=== PATIENT | female | born 1960 | race Caucasian/White ===

== ENCOUNTER 2017-11-03 19:35 | Emergency (ER) | payer OTHER ==
[2017-11-03] MEDS ORDERED: Sodium Chloride 0.9% 1000 ML 1,000 ML IV STA (21:04)
[2017-11-03] MEDS ORDERED: Zofran 4 MG/2 ML VIAL IV ONE (21:04)
[2017-11-03] MEDS ORDERED: Hydromorphone 1 mg/ml Ampule IV ONE (21:04)
[2017-11-03] MEDS ORDERED: Hydromorphone 1 mg/ml Ampule ONE (21:10)
[2017-11-03] MEDS ORDERED: Zofran 4 MG/2 ML VIAL ONE (21:10)
[2017-11-03] MEDS ORDERED: Sodium Chloride 0.9% 1000 ML 1,000 ML ONE (21:11)
[2017-11-03 21:40] LABS: BASOPHIL % 0.4 % (0.0-0.4); Basophil (Absolute #) 0.03 (0-0.4); Eosinophil % 2.9 % (0.00-5.0); Eosinophil (Absolute #) 0.22 (0-0.5); Granulocyte Absolute (ANC) 3.46 (1.4-6.9); Granulocytes % 45.2 % (36.0-66.0); Hemoglobin 13.2 gm/dl (12.0-16.0); Lymphocyte (Absolute #) 3.17 (1.0-4.6); Lymphocytes % 41.4 % (24.0-44.0); Mean Cell Volume 85.1 fl (78-100); Mean Corpuscular Hemoglobin 28.1 pg (26-32); Mean Platelet Volume 10.8 fl (6-9.5); Monocyte (Absolute #) 0.77 (0.0-1.3); Monocytes % 10.1 % (0.0-12.0); Platelet Count 229 K/mm3 (150-450); Red Cell Distribution Width 13.2 % (11.5-14.0); White Blood Count 7.7 K/mm3 (4.0-10.5)
[2017-11-03 21:58] LABS: ANION GAP 14.7 MEQ/L (5-15); BLOOD UREA NITROGEN 19 mg/dL (7-17); CHLORIDE 103 mmol/L (98-107); Calcium 9.4 mg/dL (8.4-10.2); Carbon Dioxide 28 mmol/L (22-30); Creatinine 1 0.81 mg/dL (0.52-1.04); Glucose 108 mg/dL (74-106); Potassium 4.4 mmol/L (3.5-5.1); SODIUM 141 mmol/L (137-145)
[2017-11-03 22:02] LABS: Appearance SLIGHTLY CLOUDY (CLEAR); Specific Gravity 1.025 (1.005-1.025)
[2017-11-03 22:04] LABS: Bacteria RARE /HPF (NEGATIVE); Epithelial Cells FEW /HPF (FEW); RBC 0-2 /HPF (0-2)
--- NOTE | 2017-11-03 22:45 | ERPHSYRPT ---
- History of Present Illness Time Seen by Provider: 11/03/17 20:30 Historian: patient Exam Limitations: clinical condition Patient Subjective Stated Complaint: pain in back and bladder Triage Nursing Assessment: Pt c/o of pain in the back that radiates to the front and to the bladder, frequent urination, "pins and needle" feeling, hematuria. afebrile, hx of bladder falling, BP 149/74 Physician History: PATIENT COMPLAINS OF LOWER ABDOMINAL PAIN, ONSET OF HEMATURIA, AND LOWER MID BACK PAIN X 24 HOURS. HAS SHARP PAINS UPON VOIDING. DENIES FEVER, CHILLS, FLANK PAIN. HAS CHRONIC LOWE BACK PAIN, DEGENERATGIVE DISC DISEASE. Timing/Duration: yesterday Quality: sharpness, stabbing Abdominal Pain Onset Location: suprapubic Pain Radiation: other (TO LOWER BACK) Severity of Pain-Max: moderate Severity of Pain-Current: moderate Modifying Factors: Improves With: urinating Associated Symptoms: other (HEMATURIA, LOW BACK PAIN) Previous symptoms: other (HISTORY OF LOW BACK PAIN) Allergies/Adverse Reactions: No Known Drug Allergies Allergy (Verified 11/03/17 20:28) Home Medications: Levothyroxine Sodium 100 Mcg [Synthroid 100 Mcg] 175 mcg PO DAILY 04/28/14 [History] Hx Tetanus, Diphtheria Vaccination/Date Given: No Hx Influenza Vaccination/Date Given: No Hx Pneumococcal Vaccination/Date Given: No - Review of Systems Constitutional: No Fever, No Chills Eyes: No Symptoms Ears, Nose, & Throat: No Symptoms Respiratory: No Cough, No Dyspnea Cardiac: No Chest Pain, No Edema, No Syncope Abdominal/Gastrointestinal: Abdominal Pain, No Nausea, No Vomiting, No Diarrhea Genitourinary Symptoms: Hematuria, No Dysuria Musculoskeletal: No Back Pain, No Neck Pain Skin: No Rash Neurological: No Dizziness, No Focal Weakness, No Sensory Changes Psychological: No Symptoms Endocrine: No Symptoms All Other Systems: Reviewed and Negative - Past Medical History Pertinent Past Medical History: Yes Neurological History: No Pertinent History ENT History: No Pertinent History Cardiac History: No Pertinent History Respiratory History: No Pertinent History Endocrine Medical History: Thyroid Cancer Musculoskeletal History: No Pertinent History GI Medical History: No Pertinent History History: No Pertinent History Psycho-Social History: No Pertinent History Female Reproductive Disorders: No Pertinent History - Past Surgical History Past Surgical History: Yes Neuro Surgical History: No Pertinent History Cardiac: No Pertinent History Respiratory: No Pertinent History Gastrointestinal: No Pertinent History Genitourinary: No Pertinent History Musculoskeletal: No Pertinent History Female Surgical History: Tubal Ligation Other Surgical History: THYROID SURGERY - Social History Smoking Status: Former smoker Exposure to second hand smoke: No Drug Use: none Patient Lives Alone: No - Female History Hx Now: No - Nursing Vital Signs Nursing Vital Signs: Initial Vital Signs Temperature 97.6 F 11/03/17 20:16 Pulse Rate 73 11/03/17 20:16 Blood Pressure 149/74 11/03/17 20:16 O2 Sat by Pulse Oximetry 98 11/03/17 20:16 Pain Scale Pain Intensity 8 - Physical Exam General Appearance: mild distress Eye Exam: PERRL/EOMI Ears, Nose, Throat Exam: normal ENT inspection Neck Exam: normal inspection Respiratory Exam: normal breath sounds Cardiovascular Exam: regular rate/rhythm Gastrointestinal/Abdomen Exam: soft, normal bowel sounds, tenderness ( SUPRAPUBIC TENDERNESS), hernia (SUPRAUMBILICAL HERNIA) Back Exam: normal inspection, decreased range of motion, muscle spasm ( TENDERNESS L5-S1 NO CVA TENDERNESS) Extremity Exam: normal inspection, normal range of motion, pelvis stable Neurologic Exam: alert, oriented x 3 Skin Exam: normal color SpO2 Interpretation: normal SpO2: 98 Oxygen Delivery: Room Air - CT Exams Abdomen/Pelvis CT Interpretation: Discussed w/radiologist (ENLARGING SMALL SUPRAUMBILICAL FATTY VENTRAL HERNIA,, MODERATE FECAL STASIS, RIGHT RENAL CYST) Ordered Tests: Active Orders 24 hr Category Date Time Status Clean Catch Urine Specimen STAT Care 11/03/17 21:04 Active IV Insertion STAT Care 11/03/17 21:04 Active ABDOMEN AND PELVIS W/0 CONTRAS [CT] Stat Exams 11/03/17 21:04 Taken BMP Stat Lab 11/03/17 21:30 Completed CBC W DIFF Stat Lab 11/03/17 21:30 Completed CULTURE,URINE Stat Lab 11/03/17 21:30 Received UA W/ MICROSCOPIC Stat Lab 11/03/17 21:30 Completed Medication Summary Discontinued Medications Generic Name Dose Route Start Last Admin Trade Name Freq PRN Reason Stop Dose Admin Hydromorphone HCl 1 mg 11/03/17 21:04 11/03/17 21:12 Hydromorphone 1 Mg/Ml Ampule IV 11/03/17 21:05 1 mg STAT ONE Administration Hydromorphone HCl Confirm 11/03/17 21:10 Hydromorphone 1 Mg/Ml Ampule Administered 11/03/17 21:11 Dose 1 mg .ROUTE .STK-MED ONE Sodium Chloride 1,000 mls @ 500 mls/hr 11/03/17 21:04 11/03/17 23:15 Sodium Chloride 0.9% 1000 Ml IV 11/03/17 23:03 Infused .Q2H STA Infusion Sodium Chloride Confirm 11/03/17 21:11 Sodium Chloride 0.9% 1000 Ml Administered 11/03/17 21:12 Dose 1,000 mls @ ud .ROUTE .STK-MED ONE Ondansetron HCl 4 mg 11/03/17 21:04 11/03/17 21:12 Zofran 4 Mg/2 Ml Vial IV 11/03/17 21:05 4 mg STAT ONE Administration Ondansetron HCl Confirm 11/03/17 21:10 Zofran 4 Mg/2 Ml Vial Administered 11/03/17 21:11 Dose 4 mg .ROUTE .STK-MED ONE Lab/Rad Data: Laboratory Result Diagrams 11/03/17 21:30 11/03/17 21:30 Laboratory Results 11/03/17 11/03/17 11/03/17 Range/Units 21:30 21:30 21:30 WBC 7.7 (4.0-10.5) K/mm3 RBC 4.70 (4.1-5.4) M/mm3 Hgb 13.2 (12.0-16.0) gm/dl Hct 40.0 (35-47) % MCV 85.1 (78-100) fl MCH 28.1 (26-32) pg MCHC 33.0 (32-36) g/dl RDW 13.2 (11.5-14.0) % Plt Count 229 (150-450) K/mm3 MPV 10.8 H (6-9.5) fl Gran % 45.2 (36.0-66.0) % Eos # (Auto) 0.22 (0-0.5) Absolute Lymphs (auto) 3.17 (1.0-4.6) Absolute Monos (auto) 0.77 (0.0-1.3) Lymphocytes % 41.4 (24.0-44.0) % Monocytes % 10.1 (0.0-12.0) % Eosinophils % 2.9 (0.00-5.0) % Basophils % 0.4 (0.0-0.4) % Absolute Granulocytes 3.46 (1.4-6.9) Basophils # 0.03 (0-0.4) Sodium 141 (137-145) mmol/L Potassium 4.4 (3.5-5.1) mmol/L Chloride 103 (98-107) mmol/L Carbon Dioxide 28 (22-30) mmol/L Anion Gap 14.7 (5-15) MEQ/L BUN 19 H (7-17) mg/dL Creatinine 0.81 (0.52-1.04) mg/dL Estimated GFR > 60.0 ML/MIN Glucose 108 H (74-106) mg/dL Calcium 9.4 (8.4-10.2) mg/dL Ur Collection Type CCMS Urine Color ORANGE (YELLOW) Urine Appearance SLIGHTLY CLOUDY (CLEAR) Urine pH 5.0 (5-6) Ur Specific [place] 1.025 (1.005-1.025) Urine Protein (Negative) Urine Ketones (NEGATIVE) Urine Blood (0-5) Remy/ul Urine Nitrite (NEGATIVE) Urine Bilirubin (NEGATIVE) Urine Urobilinogen (0-1) mg/dL Ur Leukocyte Esterase (NEGATIVE) Urine Microscopic RBC 0-2 (0-2) /HPF Urine Microscopic WBC 2-5 (0-5) /HPF Ur Epithelial Cells FEW (FEW) /HPF Urine Bacteria RARE (NEGATIVE) /HPF Urine Culture Reflexed YES (NO) Urine Glucose (NEGATIVE) mg/dL - Progress Progress: improved, pain not gone completely Counseled pt/family regarding: diagnosis, need for follow-up, rad results - Departure Time of Disposition: 23:57 Departure Disposition: Home Clinical Impression: URINARY TRACT INFECTION, SUPRAUMBILICAL HERNIA Condition: Stable Critical Care Time: No Referrals: SHEILA JOHANSEN [Primary Care Provider] - Additional Instructions: FOLLOWUP WITH YOUR PRIMARY CARE PROVIDER FOR REFERRAL TO GENERAL SURGEON FOR EVALUATION OF VENTRAL UMBILICAL HERNIA AND HIATAL HERNIA, AND A UROLOGIST FOR YOUR BLADDER PROLAPSE. ANTIBIOTIC BACTRIM DS TWICE DAILY FOR 10 DAYS. PRYIDIUM 100MG AFTER MEALS X 2 DAYS. ULTRAM 50 MG EVERY 6 HOURS NEEDED FOR PAIN. Prescriptions: Tramadol HCl 50 mg [Ultram 50 mg] 50 mg PO Q6HPRN PRN #15 tablet PRN Reason: Pain Phenazopyridine HCl [Pyridium 100 mg] 100 mg PO AC #6 Smz/Tmp Ds Tablet [Bactrim Ds Tablet] 1 udtab PO BID #20 tablet
[2017-11-03 23:14] VITALS: BP 108/64; PULSE 71
[2017-11-03 23:23] VITALS: O2SAT 98
[2017-11-03] MEDS ORDERED: BACTRIM DS TABLET PO STA (23:44)
[2017-11-03] MEDS ORDERED: BACTRIM DS TABLET PO ONE (23:45)
[2017-11-03] MEDS ORDERED: PYRIDIUM 200 MG ONE (23:51)
--- NOTE | 2017-11-04 09:34 | XRAY ---
Indication: Hematuria, urinary frequency, and back pain. Multiple contiguous axial images obtained through the abdomen and pelvis without contrast as ordered. Comparison: April 28, 2014. Lung bases again demonstrates minimal bibasilar fibrosis/scarring. No infiltrate or effusion. Heart is not enlarged. Stable small hiatal hernia. Noncontrasted stomach and bowel loops appear nonobstructed. There is now moderate diffuse scattered colonic fecal debris throughout. Normal appendix. No free fluid/air. Stable 2.2 cm right renal cyst and calcified splenic granulomas. Remaining liver, gallbladder, pancreas, spleen, adrenal glands, kidneys, ureters, bladder, uterus, and aorta appear unremarkable for noncontrast exam. Osseous structures intact again with mild/moderate multilevel degenerative spondylosis and partially visualized pectus excavatum deformity. Stable small fatty supraumbilical ventral hernia. Impression: 1. New fecal stasis without obstruction. 2. Stable hiatal hernia, fatty ventral hernia, and right renal cyst. 3. No acute intra-abdominal/pelvic abnormalities on this noncontrast exam. CT DI 20.31
[2017-11-04] MEDS ORDERED: PYRIDIUM 200 MG PO ONE (23:45)
== END 2017-11-04 | disposition home or self-care (01) ==
LOC: ED 19:35
DX: N39.0 Urinary tract infection, site not specified (principal); K43.9 Ventral hernia without obstruction or gangrene; R31.9 Hematuria, unspecified; M54.5 Low back pain; K44.9 Diaphragmatic hernia without obstruction or gangrene; N81.10 Cystocele, unspecified
CPT/HCPCS: 36415; 74176; 80048; 81000; 85025; 87086; 96360; 96374; 96375; 99284; J1170; J2405; A9270-GY

== ENCOUNTER 2017-12-25 07:24 | Day surgery (SDC) | payer OTHER ==
--- NOTE | 2017-12-24 09:57 | HP ---
DATE OF SURGERY: 12/25/2017 ADMISSION DIAGNOSIS: Ventral and umbilical hernia possible mesh. HISTORY OF PRESENT ILLNESS: The patient has symptomatic hernia, one at the umbilicus upper edge, ventral hernia about 1 inch above this requiring repair with possible mesh. PAST MEDICAL HISTORY: ALLERGIES: NONE. MEDICATIONS: Synthroid, Naprosyn, Celexa. PAST SURGICAL HISTORY: Thyroid cancer. SOCIAL HISTORY: Negative. FAMILY HISTORY: Negative. REVIEW OF SYSTEMS: Negative. PHYSICAL EXAMINATION: VITAL SIGNS: Normal. CHEST: Clear. COR: Regular. ABDOMEN: As noted. IMPRESSION: Two hernias. PLAN: Repair.
[~2017-12-25 07:24] MED LIST: KEFZOL 1 GM ONE; Lactated Ringers 1,000 ML IV ONE; Sensorcaine 0.25% 10 ML ONE
[2017-12-25] MEDS ORDERED: SUBLIMAZE 250 MCG/5 ML IV ONE (07:25)
[2017-12-25] MEDS ORDERED: Zemuron 100 MG/10 ML IV ONE (07:25)
[2017-12-25] MEDS ORDERED: BRIDION 200MG/2ML IV ONE (07:25)
[2017-12-25] MEDS ORDERED: DIPRIVAN 200 MG/20 ML IV ONE (07:25)
[2017-12-25] MEDS ORDERED: Lactated Ringers 1,000 ML IV ONE (07:43)
[2017-12-25] MEDS ORDERED: CEFAZOLIN 2 GM-D5W BAG** 2 GM/50 ML ML IV SCH (08:00)
[2017-12-25] MEDS ORDERED: Lactated Ringers 1,000 ML IV SCH (08:00)
[2017-12-25] MEDS ORDERED: CEFAZOLIN 2 GM-D5W BAG** 2 GM/50 ML ML IV ONE (08:43)
[2017-12-25] MEDS ORDERED: VALIUM 10 MG/2 ML SYRINGE IV ONE (08:55)
[2017-12-25] MEDS ORDERED: MORPHINE SULFATE 10 MG/ML ONE (12:14)
[2017-12-25] MEDS ORDERED: TORAdol 30 mg Injection ONE (12:14)
[2017-12-25] MEDS ORDERED: SUBLIMAZE 100 MCG/2 ML ONE (12:23)
[2017-12-25] MEDS ORDERED: NORCO 7.5/325 MG TAB PO PRN (14:06)
[2017-12-25 14:19] VITALS: O2SAT 95
[2017-12-25 14:58] VITALS: BP 152/76; PULSE 76
--- NOTE | 2017-12-26 09:07 | OP ---
SURGERY DATE/TIME: 12/25/2017 1113 PREOPERATIVE DIAGNOSIS: Ventral hernia, umbilical hernia. POSTOPERATIVE DIAGNOSIS: Ventral hernia. PROCEDURE: Ventral herniorrhaphy with mesh. SURGEON: John Berg M.D. ANESTHESIA: General. COMPLICATIONS: None. CONDITION: Stable. INDICATION: The patient has ventral hernia, very small umbilical hernia. DESCRIPTION OF PROCEDURE: Taken to surgery. General anesthetic. Routine prep and drape. Ventral hernia was opened. A 3 inch zone was clear underneath this and this did include the field under the umbilical area. A Bicomponent medium-sized mesh was placed, pulled up and secured with simple interrupted suture #0 Prolene tacking this very nicely. This looked like a very solid repair and it did reinforce for about 2 inches which was at least an inch below the umbilicus. Closed with 3-0 Vicryl, 4-0 Vicryl and Steri-Strips. The patient tolerated the procedure satisfactorily.
== END 2017-12-25 14:40 | disposition home or self-care (01) ==
LOC: SDC 07:24
PROVIDERS: ATTEND Surgery
DX: K43.9 Ventral hernia without obstruction or gangrene (principal); K42.9 Umbilical hernia without obstruction or gangrene; Z85.850 Personal history of malignant neoplasm of thyroid; Z79.899 Other long term (current) drug therapy
CPT/HCPCS: 00750; 49560; 49568; 94250; L0625; 88302; J0690; J1885; J2270; J2704; J3010; J3360; A9270-GY

== ENCOUNTER 2020-03-07 16:53 | Emergency (ER) | payer OTHER ==
--- NOTE | 2020-03-07 17:11 | ERPHSYRPT ---
- History of Present Illness Time Seen by Provider: 03/07/20 17:06 Source: patient Exam Limitations: no limitations Physician History: The patient is a 60-year-old female with a past medical history significant for a right bunionectomy that was performed around November 2019 for which she has been wearing orthotic boot since that time for splinting and stabilization. The procedure was performed by a fare register repairer in [place], [place] who presents with a chief complaint of. She reportedly had her walking boot off last night while she was trying on it. Jeans and stumbled causing her to step down on the right foot with force. She reportedly heard a pop around the anterior medial aspect of the right foot and has had worsening pain since that time. She is also endorsed swelling. Pain is constant, mild to moderate and is nonradiating. Jackie has been taken ibuprofen at home with some relief in her symptoms in addition she has leftover Vicodin and Percocet from her previous procedure that she can take at home as well. Allergies/Adverse Reactions: No Known Drug Allergies Allergy (Verified 12/25/17 08:03) Home Medications: Levothyroxine Sodium 100 Mcg [Synthroid 100 Mcg] 175 mcg PO DAILY 04/28/14 [History] Citalopram Hydrobromide 20 mg* [ceLEXa 20 MG] 20 mg PO HS 12/16/17 [History] Naproxen 375 mg [Naprosyn 375 mg] 500 mg PO BID 12/16/17 [History] Hx Tetanus, Diphtheria Vaccination/Date Given: No Hx Influenza Vaccination/Date Given: No Hx Pneumococcal Vaccination/Date Given: No - Review of Systems Musculoskeletal: Other (Right foot and ankle pain with swelling) Skin: No Symptoms Neurological: No Symptoms Psychological: No Symptoms - Past Medical History Pertinent Past Medical History: Yes Neurological History: No Pertinent History ENT History: No Pertinent History Cardiac History: No Pertinent History Respiratory History: No Pertinent History Endocrine Medical History: Thyroid Cancer Musculoskeletal History: No Pertinent History GI Medical History: Hernia History: No Pertinent History Psycho-Social History: Anxiety, Depression Female Reproductive Disorders: No Pertinent History - Past Surgical History Past Surgical History: Yes Neuro Surgical History: No Pertinent History Cardiac: No Pertinent History Respiratory: No Pertinent History Gastrointestinal: No Pertinent History Genitourinary: No Pertinent History Musculoskeletal: No Pertinent History Female Surgical History: Tubal Ligation Other Surgical History: THYROID SURGERY - Social History Smoking Status: Former smoker Exposure to second hand smoke: No Drug Use: none Patient Lives Alone: No - Nursing Vital Signs Nursing Vital Signs: Initial Vital Signs Temperature 98.0 F 03/07/20 16:57 Pulse Rate 85 03/07/20 16:57 Respiratory Rate 18 03/07/20 16:57 Blood Pressure 162/62 03/07/20 16:57 O2 Sat by Pulse Oximetry 100 03/07/20 16:57 Pain Scale Pain Intensity 6 - Physical Exam General Appearance: no apparent distress, alert Cardiovascular Exam: regular rate/rhythm, normal heart sounds, No murmur, No friction rub, No gallop Extremity Exam: swelling, tenderness Neurologic Exam: alert, oriented x 3, cooperative Skin Exam: normal color, warm, dry, other - Course Nursing assessment & vital signs reviewed: Yes - Radiology Exams Right Foot X-ray Interpretation: Interpreted by me, Reviewed by me, Negative, Other (No evidence of fracture or dislocation) Right Ankle X-ray Interpretation: Interpreted by me, Reviewed by me, Negative (Hardware intact no evidence of fracture or dislocation) Ordered Tests: Active Orders 24 hr Category Date Time Status ANKLE (3 VIEWS) Stat Exams 03/07/20 17:11 Taken FOOT (MINIMUM 3 VIEWS) Stat Exams 03/07/20 17:11 Taken Medication Summary Discontinued Medications Generic Name Dose Route Start Last Admin Trade Name Edilberto PRN Reason Stop Dose Admin Hydrocodone Bitart/Acetaminophen 1 tab 03/07/20 17:14 03/07/20 17:17 Irving 5/325 Mg PO 03/07/20 17:15 1 tab STAT ONE Administration Hydrocodone Bitart/Acetaminophen Confirm 03/07/20 17:17 Irving 5/325 Mg Administered 03/07/20 17:18 Dose 1 tab .ROUTE .STK-MED ONE Ketorolac Tromethamine 30 mg 03/07/20 17:12 03/07/20 17:14 Toradol 30 Mg Injection IM 03/07/20 17:13 30 mg STAT ONE Administration Ketorolac Tromethamine Confirm 03/07/20 17:14 Toradol 30 Mg Injection Administered 03/07/20 17:15 Dose 30 mg .ROUTE .STK-MED ONE - Progress Progress: improved Progress Note: 03/07/20 18:08 It appears the patient is prescribed gabapentin 300 mg capsules and a total of 90 tablets were filled on February 17, 2020. Counseled pt/family regarding: diagnosis, need for follow-up, rad results - Departure Departure Disposition: Home Clinical Impression: Sprain of foot, right, Right ankle sprain Condition: Stable Critical Care Time: No Referrals: SHEILA JOHANSEN [Primary Care Provider] - Instructions: Ankle Sprain (DC), Foot Sprain (DC) Additional Instructions: Please continue to wear your walking boot as prescribed. Please follow-up with your fare register repairer within a week or as scheduled at this is sooner for further evaluation and management. Please continue to take naproxen for pain in addition to any leftover Irving or oxycodone that you have for breakthrough pain. You will be contacted if there is a discrepancy on your x-ray read once the radiologist formally reads both your foot and ankle x-ray. If the
[2020-03-07] MEDS ORDERED: TORAdol 30 mg Injection ONE (17:14)
[2020-03-07] MEDS: TORAdol 30 mg Injection IM ONE (17:14)
[2020-03-07] MEDS ORDERED: NORCO 5/325 MG ONE (17:17)
[2020-03-07] MEDS: NORCO 5/325 MG PO ONE (17:17)
[2020-03-07 17:57] VITALS: BP 143/77; PULSE 84; O2SAT 99
--- NOTE | 2020-03-08 08:37 | XRAY ---
Indication: Pain and bruising following fall. Comparison: None 3 view right ankle demonstrates mild anterior lateral soft tissue swelling, mild osteopenia, tiny plantar heel spur, and 1st tarsometatarsal fixation hardware. No other bony, articular, or soft tissue abnormalities.
--- NOTE | 2020-03-08 08:39 | XRAY ---
Indication: Pain and bruising following fall. Comparison: None 3 nonweightbearing views right foot demonstrates osteopenia, tiny plantar heel spur, 1st metatarsal head postsurgical changes, and fixation hardware 1st tarsometatarsal/proximal 1st phalanx/2nd metatarsal head. No other bony, articular, or soft tissue abnormalities.
== END 2020-03-07 18:17 | disposition home or self-care (01) ==
LOC: ED 16:53
DX: S93.401A Sprain of unspecified ligament of right ankle, initial encounter (principal); S93.601A Unspecified sprain of right foot, initial encounter; Z79.899 Other long term (current) drug therapy
CPT/HCPCS: 73610; 73630; 96372; 99284; J1885; A9270-GY

== ENCOUNTER 2020-05-29 05:51 | Day surgery (SDC) | payer OTHER ==
[2020-05-29] MEDS ORDERED: Lactated Ringers 1,000 ML IV SCH (06:30)
[2020-05-29 06:59] VITALS: O2SAT 99
[2020-05-29] MEDS ORDERED: DIPRIVAN 200 MG/20 ML IV ONE (07:57)
[2020-05-29 09:17] VITALS: BP 107/72; PULSE 70
--- NOTE | 2020-05-29 09:44 | OP ---
SURGERY DATE/TIME: 05/29/2020 0803 PREOPERATIVE DIAGNOSIS: Screening exam. POSTOPERATIVE DIAGNOSIS: Mild sigmoid diverticulosis. PROCEDURE: Colonoscopy. SURGEON: Dr. Garcia. ANESTHESIA: MAC. Medications given by anesthesia department. HISTORY: The patient is a 60 year-old white female who presents now for colonoscopic evaluation. The patient reported history of problems with constipation recently. She has never had a colonoscopy before. The patient was appraised of the risks of the procedure including the risk of perforation, phlebitis, untoward reaction to medication, bleeding and missed lesions. The patient verbalized her understanding and desired to have the procedure performed. DESCRIPTION OF PROCEDURE: She was placed in left lateral decubitus position. Digital rectal examination performed and revealed normal anal sphincter tone and no masses. The flexible Olympus pediatric colonoscope was used to intubate the rectum. A view of the colon was developed sequentially to the cecum. Upon insertion and withdrawal, including a retroflex view in the rectum was noted mild sigmoid diverticula otherwise no mucosal lesions were encountered. The scope was removed from the patient who tolerated the procedure well and was sent back to OP recovery in good condition. The prep was noted to be good.
== END 2020-05-29 09:25 | disposition home or self-care (01) ==
LOC: SDC 05:51
PROVIDERS: ATTEND Family Medicine
DX: Z12.11 Encounter for screening for malignant neoplasm of colon (principal); K57.30 Diverticulosis of large intestine without perforation or abscess without bleeding; K59.00 Constipation, unspecified
CPT/HCPCS: J2704

== ENCOUNTER 2021-01-31 12:44 | Day surgery (SDC) | payer OTHER ==
[2021-01-31] MEDS ORDERED: Xylocaine 1% Vial 30 ML PF IJ ONE (12:45)
[2021-01-31] MEDS ORDERED: BUPIVACAINE 0.5% VIAL IJ ONE (12:45)
[2021-01-31] MEDS ORDERED: DIPRIVAN 200 MG/20 ML IV ONE (15:21)
[2021-01-31] MEDS ORDERED: Lactated Ringers 1,000 ML IV ONE (15:36)
--- NOTE | 2021-01-31 16:46 | XRAY ---
Indication: Right lumbar sympathetic nerve block. Intraoperative fluoroscopy provided for 45 seconds. 5 digital spot image submitted for interpretation demonstrates right posterior needle tip projecting just anterior to a mid lumbar segment. Small amount of contrast injected for needle tip placement. Correlate with intraoperative findings/report.
--- NOTE | 2021-01-31 17:03 | XRAY ---
45 seconds fluoroscopy time in surgery for right lumbar sympathetic nerve block.
== END 2021-01-31 15:55 | disposition home or self-care (01) ==
LOC: SDC-PAIN 12:44
PROVIDERS: ATTEND Psychiatry & Neurology Pain Medicine
DX: G90.521 Complex regional pain syndrome I of right lower limb (principal); Z79.899 Other long term (current) drug therapy
CPT/HCPCS: 64520; 72100; 77002; J2001; J2704; Q9966

== ENCOUNTER 2021-05-16 12:06 | Day surgery (SDC) | payer OTHER ==
[2021-05-16] MEDS ORDERED: Xylocaine 1% Vial 30 ML PF IJ ONE (12:07)
[2021-05-16] MEDS ORDERED: Sensorcaine 0.25% 10 ML IJ ONE (12:07)
[2021-05-16] MEDS ORDERED: DIPRIVAN 200 MG/20 ML IV ONE (14:45)
[2021-05-16] MEDS ORDERED: Lactated Ringers 1,000 ML IV ONE (15:25)
--- NOTE | 2021-05-16 16:48 | XRAY ---
Indication: Right sympathetic nerve block. Intraoperative fluoroscopy provided for 48 seconds. 5 digital spot images submitted for interpretation demonstrates right posterior needle tip projecting just anterior to a mid lumbar segment, presumed L2. Small amount of contrast injected for needle tip placement. Correlate with intraoperative findings/report.
--- NOTE | 2021-05-16 16:59 | XRAY ---
48 seconds fluoroscopy time in surgery for sympathetic nerve block of the lumbar spine on the right side.
== END 2021-05-16 15:15 | disposition home or self-care (01) ==
LOC: SDC-PAIN 12:06
PROVIDERS: ATTEND Psychiatry & Neurology Pain Medicine
DX: G90.521 Complex regional pain syndrome I of right lower limb (principal)
CPT/HCPCS: 64520; 72100; 77002; J2001; J2704; Q9966

== ENCOUNTER 2022-07-26 08:25 | Day surgery (SDC) | payer OTHER ==
[~2022-07-26 08:25] MED LIST changes: -KEFZOL 1 GM ONE; -Lactated Ringers 1,000 ML IV ONE; +Marcaine Mpf 0.5% Vial 30 Ml ONE; -Sensorcaine 0.25% 10 ML ONE; +Xylocaine 1% Vial 30 ML PF IJ ONE
[2022-07-26] MEDS ORDERED: CEFAZOLIN 2 GM-D5W BAG** 2 GM/50 ML ML IV SCH (09:00)
[2022-07-26] MEDS ORDERED: Lactated Ringers 1,000 ML IV SCH (09:00)
[2022-07-26] MEDS ORDERED: Epinephrine Preservative Free 1 MG/ML ONE (11:23)
[2022-07-26] MEDS ORDERED: Marcaine 0.5%/Epinephrine 10 ML ONE (11:24)
[2022-07-26] MEDS ORDERED: Versed 2 MG/2 ML Injection ONE (11:24)
[2022-07-26] MEDS ORDERED: Decadron 4 MG INJ ONE ×2 (11:24→11:48)
[2022-07-26] MEDS ORDERED: SUBLIMAZE 250 MCG/5 ML ONE (11:24)
[2022-07-26] MEDS ORDERED: DEXMEDETOMIDINE 80 MCG/20ML-NS IV ONE (11:24)
[2022-07-26] MEDS ORDERED: BRIDION 200MG/2ML IV ONE (11:48)
[2022-07-26] MEDS ORDERED: Zemuron 100 MG/10 ML ONE (11:48)
[2022-07-26] MEDS ORDERED: TORAdol 30 mg Injection ONE (11:48)
[2022-07-26] MEDS ORDERED: Zofran 4 MG/2 ML VIAL ONE (11:48)
[2022-07-26] MEDS ORDERED: DIPRIVAN 200 MG/20 ML IV ONE ×2 (11:48→12:28)
[2022-07-26] MEDS ORDERED: Transderm Scop 1.5MG Patch ONE (12:06)
[2022-07-26] MEDS ORDERED: ROBINUL ONE (12:19)
[2022-07-26] MEDS ORDERED: Ephedrine Sulfate 50 MG/ML ONE (12:32)
[2022-07-26] MEDS ORDERED: Lactated Ringers 1,000 ML IV ONE (12:37)
[2022-07-26] MEDS ORDERED: OFIRMEV 100 ML IV ONE (12:37)
--- NOTE | 2022-07-26 14:31 | XRAY ---
Indication: Right 1st tarsometatarsal and 1st MTP arthrodesis. Intraoperative fluoroscopy provided for 2 minutes 44 seconds. 12 digital spot images submitted for interpretation ultimately demonstrates revision 1st tarsometatarsal and 1st MTP arthrodesis with new hardware. Correlate with intraoperative findings/report.
[2022-07-26 16:33] VITALS: O2SAT 98
--- NOTE | 2022-07-26 16:47 | XRAY ---
2 minutes 44 seconds of fluoroscopy was used in surgery for a right 1st tarsometatarsal and 1st MTP arthrodesis.
[2022-07-26 16:57] VITALS: BP 127/62; PULSE 52
--- NOTE | 2022-07-29 08:31 | OP ---
SURGERY DATE/TIME: 07/26/2022 1245 PREOPERATIVE DIAGNOSES: 1) Ankle synovitis right ankle. 2) Painful retained hardware to first tarsometatarsal joint and proximal phalanx of the right foot. 3) Osteoarthritis first metatarsophalangeal joint. 4) Hallux valgus iatrogenic right foot. POSTOPERATIVE DIAGNOSES: 1) Ankle synovitis right ankle. 2) Painful retained hardware to first tarsometatarsal joint and proximal phalanx of the right foot. 3) Osteoarthritis first metatarsophalangeal joint. 4) Hallux valgus iatrogenic right foot. PROCEDURES: 1) Ankle arthroscopy with attempted synovectomy right ankle. 2) Hardware removal right foot first tarsometatarsal joint. 3) Hardware removal proximal phalanx right foot. 4) First metatarsophalangeal joint arthrodesis. SURGEON: Freddie Florez DPM. LAB TECH: None. ANESTHESIA: General plus a preoperative regional block. See injectables for details. HEMOSTASIS: Ankle tourniquet set to 300 mm of Mercury for a total of 70 total tourniquet minutes. ESTIMATED BLOOD LOSS: Minimal. MATERIALS: Josse 0-degree first metatarsophalangeal joint arthrodesis plate with a 3.4 x 40 MAX VPC screw, 4-0 Monocryl, 3-0 Nylon, Suturegard x2. INJECTABLES: See anesthesia report for details. INDICATION FOR SURGERY: Beverly is a very pleasant 62-year-old female who presented to my service several years ago for complaints of pain following a Lapidus procedure performed by a physician in [place]. The patient did have residual hallux abductovalgus deformity with a crossover toe with the hallux significantly crossing over the second digit. As a result there was some significant pain between the first and second digit as well as significant elevation. The patient had pain and as a result of the deformity had falls because of instability. At this time the patient is willing to proceed with surgical intervention. As a result of instability and uneven wear of the ankle joints she has been experiencing significant amount of pain to the right ankle and this demonstrated a positive Jan's test as well as some indications of an ankle joint effusion on x-ray. At this time the decision was made to proceed with surgical intervention. The patient understands the risks, benefits and complications of surgical intervention at this time including but not limited to infection, hematoma, seroma, possibility of delayed wound healing, nonwound healing, possibility of failure of surgical intervention, possibility of need for further surgical intervention at a later date and possible failure of surgical intervention. No guarantees were provided as to the outcome. Plenty of time was allowed for the patient to ask questions to her apparent satisfaction. It is with that we decided to proceed. DESCRIPTION OF PROCEDURE AND FINDINGS: The patient was brought into the OR and placed on the OR table in the supine position. At this time general anesthesia was administered until the patient was sedated. A well-padded ankle tourniquet was applied to the patient's right ankle and set to 300 mm of Mercury. At this time the right lower extremity was prepped and draped in the typical sterile fashion and lowered onto the surgical field. At this time attention was directed to the ankle where the medial and lateral malleolus were identified the distal extent as well as the palpable dell of the ankle joint was identified. Lines were utilized to show the planning lines. The anteromedial and anterolateral portals were established based on the landmarks. The intramedial portal was established just medial to the tibialis anterior tendon where at this point an 18 gauge needle with lactated Ringer's was utilized to insufflate the ankle joint. This held approximately 30 cc of lactated Ringer's and the characteristic dorsiflexion of the foot occurred. An 11 blade was utilized to make a stab incision at the anteromedial aspect which was carried down under blunt dissection with a curved mini-hemostat to the joint capsule. Fluid insufflation extravasated at this point. Then a blunt obturator and trocar was introduced into the anteromedial portal where obturator was then removed and 4-0 mm on a 30 degree camera was introduced into the anteromedial portal. Immediate inspection of the joint was carried out showing a significant amount of synovitis. Lights were turned off and under the lite of the scope an 11 blade was utilized to establish anterolateral portal. Blunt dissection was carried down to the level of the capsule at the anterolateral aspect utilizing a curved mini-hemostat. Following this the shaver was then introduced and synovectomy began. At this time the synovectomy was carried out extensively cleaning up all hemorrhagic synovitis, crabmeat synovitis as well as the constrictor band at the anterior aspect of the ankle. At this time the joint was probed and checked for cartilage quality. No soft points in the cartilage were identified. There were multiple pictures of this shown in the patient's electronic and paper chart. At this time the scope was withdrawn. The Esmarch was utilized to exsanguinate the leg and the tourniquet was inflated. At this time an incision was made at the dorsomedial aspect of the right first metatarsophalangeal joint following the line of the extensor hallucis longus which was bowstrung secondary residual contracture. At this time the Ultrix plate was removed utilizing a T12 and T8 trash truck driver until the hardware was removed from this site. A separate incision was made at the distal extent of the proximal phalanx where the staple was then removed from this site. The first metatarsophalangeal joint did have an extensive amount of osteoarthritic changes with deviation. At this time a cup and conical reamer were utilized to resect the metatarsal head and the base of the proximal phalanx until all cartilage was removed. Copious amounts of sterile saline were utilized to flush this site and a Josse 0-degree first metatarsophalangeal joint fusion plate was introduced to the dorsal aspect of the joint. Distal locking and nonlocking screws were introduced. The plate was then compressed utilizing eccentric compression hole. MAX VPC screw measuring 3.4 x 30 was introduced from the distal medial to proximal lateral aspect of the first metatarsophalangeal joint. At this time the remaining screws were introduced gaining excellent position of the toe this was checked under multiple views and deemed to be adequate. Following this the patient's subcutaneous tissue was coapted from the capsule layer utilizing a 4-0 Monocryl in interlocking continuous stitch. The 4-0 Monocryl was then utilized to close the subcutaneous edges in a simple buried-type fashion and then 3-0 Nylon along with two Suturegards in a horizontal mattress-type fashion. The tourniquet was let down at a total of 70 total tourniquet minutes. Estimated blood loss at that time was minimal. The patient had a dressing consisting of Betadine, Adaptic, 4x4, Kerlix and MOLINA. The patient was then reversed from anesthesia and returned to the postoperative anesthesia care unit with vital signs stable and vascular status intact. The patient handled the anesthesia as well as the procedure without significant complication. Postoperative orders as indicated in the patient's discharge chart.
== END 2022-07-26 16:45 | disposition home or self-care (01) ==
LOC: SDC 08:25
PROVIDERS: ATTEND Podiatrist Foot & Ankle Surgery
DX: M65.9 Synovitis and tenosynovitis, unspecified (principal); T84.84XA Pain due to internal orthopedic prosthetic devices, implants and grafts, initial encounter; M19.071 Primary osteoarthritis, right ankle and foot; M20.11 Hallux valgus (acquired), right foot
CPT/HCPCS: 20680; 28750; 29898; 73630; 76000; 76937; C1713; J0171; J0690; J1100; J1885; J2001; J2250; J2405; J2704; J3010; A9270-GY

== ENCOUNTER 2022-08-17 10:47 | Emergency (ER) | payer OTHER ==
--- NOTE | 2022-08-17 11:22 | ERPHSYRPT ---
- History of Present Illness Time Seen by Provider: 08/17/22 11:17 Source: patient, family Exam Limitations: no limitations Patient Subjective Stated Complaint: Right foot-possible infection Triage Nursing Assessment: Patient ambulated back to ED and transferred self to bed. Patient A+O X 3. Patient's skin pink, warm and dry. Patient states she had recent foot surgery per Dr. Frazier for Bunion repair with hardware on July 26, 2022. Patient had sutures removed to right foot on 08/15/2022. Patient states she is doing daily dressing changes and today noted on one of the incsions she noted yellow drainage. Patient denies pain or discomfort. Incision noted underneath right foot, great toes ntoed to have yellow drainage. Physician History: pt is post op bunion right hallux x [address] Frazier but was concerned on po ssible drainage. stitches are already out. Minimal erythema nontender. No drainage at this time after bandage removal. Discussed CBC and Sed rate with pt and and they wish to proceed , I ordered and discussed results later. Hx confirmed with as independent source. Discussed with Dr. Frazier and pt and the possibility for prescription antibiotics and Dr. Frazier advised to hold off at this time in view of current wound appearance as described and other findings that this is not yet indicated. She will f/u Friday for wound recheck with Dr. Yen and return meantime if any further concerns and continue compression dressing and iodine dressing. Method of Injury: other (surgery - no injury) Occurred: yesterday Quality: other (drainage ) Severity of Pain-Max: mild Severity of Pain-Current: mild Lower Extremities Pain: foot: right Modifying Factors: Improves With: nothing Associated Symptoms: other (drainage) Allergies/Adverse Reactions: No Known Drug Allergies Allergy (Verified 08/17/22 10:58) Home Medications: Ibuprofen [IBUPROFEN 400 MG TABLET] 800 mg PO DAILY 05/24/20 [History] Levothyroxine Sodium 112 Mcg [Synthroid 112 Mcg] 88 mcg PO DAILY 05/24/20 [History] L.rhamnosus/B.animalis(Lactis) [[facility]' Colon [facility] 3B Cfu Cp] 1 each PO DAILY 07/18/22 [History] Omeprazole 40 mg PO DAILY 07/18/22 [History] Propranolol HCl [Propranolol HCl ER] 80 mg PO DAILY 07/18/22 [History] Tizanidine HCl 4 mg [Zanaflex 4 MG] 2 mg PO HS 07/18/22 [History] Fluoxetine HCl 20 mg [Prozac 20 MG] 20 mg PO DAILY 07/26/22 [History] Hx Tetanus, Diphtheria Vaccination/Date Given: No Hx Influenza Vaccination/Date Given: No Hx Pneumococcal Vaccination/Date Given: No Immunizations Up to Date: Yes Travel Risk - International Travel Have you traveled outside of the country in past 3 weeks: No - Coronavirus Screening Are you exhibiting any of the following symptoms?: No Close contact with a COVID-19 positive Pt in past 14-21 Days: No - Vaccine Status Have you recieved a Covid-19 vaccination: Yes Osd Clerk: Unknown - Vaccination Dates Dates if Unknown: na - Review of Systems Constitutional: No Fever, No Chills Eyes: No Symptoms Ears, Nose, & Throat: No Symptoms Respiratory: No Cough, No Dyspnea Cardiac: No Chest Pain, No Edema, No Syncope Abdominal/Gastrointestinal: No Abdominal Pain, No Nausea, No Vomiting, No Diarrhea Genitourinary Symptoms: No Dysuria Musculoskeletal: No Back Pain, No Neck Pain Skin: Other (drainage), No Rash Neurological: No Dizziness, No Focal Weakness, No Sensory Changes Psychological: No Symptoms Endocrine: No Symptoms Hematologic/Lymphatic: No Symptoms Immunological/Allergic: No Symptoms All Other Systems: Reviewed and Negative - Past Medical History Pertinent Past Medical History: Yes Neurological History: Migraines, Peripheral Neuropathy, Other ENT History: No Pertinent History Cardiac History: No Pertinent History Respiratory History: Sleep Apnea Endocrine Medical History: Thyroid Cancer Musculoskeletal History: Osteoarthritis GI Medical History: Hernia History: No Pertinent History Psycho-Social History: Anxiety, Depression Female Reproductive Disorders: No Pertinent History Other Medical History: MIGRAINE MEDICATION. TINGLING NOTED INTO B HANDS, HAS BEEN TO A NEUROLOGIST AND DIAGNOSED WITH CARPAL TUNNEL. PRE DIABETIC, THYROID CA - Past Surgical History Past Surgical History: Yes Neuro Surgical History: No Pertinent History Cardiac: No Pertinent History Respiratory: No Pertinent History Gastrointestinal: Hernia Repair Genitourinary: No Pertinent History Musculoskeletal: No Pertinent History Female Surgical History: Tubal Ligation Other Surgical History: THYROID SURGERY, hernia, right bunionectomy - Social History Smoking Status: Former smoker Exposure to second hand smoke: No Drug Use: none Patient Lives Alone: No - Nursing Vital Signs Nursing Vital Signs: Initial Vital Signs Temperature 98.2 F 08/17/22 10:59 Pain Scale Pain Intensity 0 - Physical Exam General Appearance: no apparent distress, alert Eyes, Ears, Nose, Throat Exam: moist mucous membranes Neck Exam: non-tender, supple Cardiovascular/Respiratory Exam: chest non-tender, normal breath sounds, regular rate/rhythm, no respiratory distress Gastrointestinal/Abdominal Exam: non-tender, guarding Back Exam: normal inspection, No vertebral tenderness Hips Exam: bilateral: non-tender, normal inspection, normal range of motion, no evidence of injury Legs Exam: bilateral leg: non-tender, normal inspection, normal range of motion, no evidence of injury Knees Exam: bilateral knee: non-tender, normal inspection, normal range of motion, no evidence of injury Ankle Exam: bilateral ankle: non-tender, normal inspection, normal range of motion, no evidence of injury (surgical wounds) Foot Exam: right foot: soft tissue tenderness, swelling, left foot: non-tender, normal inspection, bilateral foot: normal range of motion, no evidence of injury DTR - Lower Extremities Exam: knee (R): 2+, knee (L): 2+, ankle (R): 2+, ankle (L): 2+ Neuro/Tendon Exam: normal sensation, normal motor functions, normal tendon functions Mental Status Exam: alert, oriented x 3, cooperative Skin Exam: normal color, warm, dry - Course Nursing assessment & vital signs reviewed: Yes Ordered Tests: Active Orders 24 hr Category Date Time Status CBC W DIFF Stat Lab 08/17/22 11:25 Completed CULTURE,WOUND Stat Lab 08/17/22 11:09 Received SED RATE [Erythrocyte Sedimentation Rate] Stat Lab 08/17/22 11:25 Completed Lab/Rad Data: Laboratory Result Diagrams 08/17/22 11:25 Laboratory Results 08/17/22 08/17/22 Range/Units 11:25 11:25 WBC 5.2 (4.0-10.5) x10^3/uL RBC 4.27 (4.1-5.4) x10^6/uL Hgb 12.4 (12.0-16.0) g/dL Hct 39.0 (35-47) % MCV 91.3 (78-100) fL MCH 29.0 (26-32) pg MCHC 31.8 L (32-36) g/dL RDW 12.5 (11.5-14.0) % Plt Count 224 (150-450) x10^3/uL MPV 10.2 (7.5-11.0) fL Gran % 60.6 (36.0-66.0) % Immature Gran % (Auto) 0.2 (0.00-0.4) % Nucleat RBC Rel Count 0.0 (0.00-0.1) % Eos # (Auto) 0.16 (0-0.5) x10^3/uL Immature Gran # (Auto) 0.01 (0.00-0.03) x10^3u/L Absolute Lymphs (auto) 1.38 (1.0-4.6) x10^3/uL Absolute Monos (auto) 0.44 (0.0-1.3) x10^3/uL Absolute Nucleated RBC 0.00 (0.00-0.01) x10^3u/L Lymphocytes % 26.8 (24.0-44.0) % Monocytes % 8.5 (0.0-12.0) % Eosinophils % 3.1 (0.00-5.0) % Basophils % 0.8 (0.0-0.4) % Absolute Granulocytes 3.12 (1.4-6.9) x10^3/uL Basophils # 0.04 (0-0.4) x10^3/uL ESR 3 (0-20) mm/hr - Progress Progress: improved, re-examined Progress Note: 08/17/22 11:[address] Frazier Counseled pt/family regarding: lab results, diagnosis, need for follow-up Medical Desision Making - Independent Historian Additional History obtained from: Spouse - Discussion of managment Care discussed with:: specialist Reviewed:: Test results, Need for additional workup Agreed on:: Treatment plan, need for follow-up Will see patient: In office - Diagnostic Testing Diagnostic test were ordered, analyzed, and reviewed by me: Yes Radiological Interpretation: Interpreted by me - Risk of complications The pt has a mod risk of morbidity or mortality based on: Need for prescription drug management (discussion only ) - Departure Departure Disposition: Home Clinical Impression: Healing post surgical wound right foot Condition: Good Critical Care Time: No Referrals: JOHANSEN,SHEILA, DIESEL SERVICE TECHNICIAN [Primary Care Provider] - Follow up/PCP as directed Additional Instructions: followup with Dr. Frazier Friday for wound recheck especially if any remaining concerns or further developments. Return meantime if further concerning drainage, redness, swelling, pain , fever or other concerns. Followup your blood pressure with your DrWayne and begin rechecking this if not already, and return meantime if any symptoms of concern.
[2022-08-17 11:29] LABS: Absolute Neutrophil Ct (ANC) 3.12 x10^3/uL (1.4-6.9); BASOPHIL % 0.8 % (0.0-0.4); Basophil (Absolute #) 0.04 x10^3/uL (0-0.4); Eosinophil % 3.1 % (0.00-5.0); Eosinophil (Absolute #) 0.16 x10^3/uL (0-0.5); Hemoglobin 12.4 g/dL (12.0-16.0); IMMATURE GRAN # 0.01 x10^3u/L (0.00-0.03); IMMATURE GRAN % 0.2 % (0.00-0.4); Lymphocyte (Absolute #) 1.38 x10^3/uL (1.0-4.6); Lymphocytes % 26.8 % (24.0-44.0); Mean Cell Volume 91.3 fL (78-100); Mean Corpuscular Hgb Concent. 31.8 g/dL (32-36); Mean Platelet Volume 10.2 fL (7.5-11.0); Monocyte (Absolute #) 0.44 x10^3/uL (0.0-1.3); Monocytes % 8.5 % (0.0-12.0); Neutrophil % 60.6 % (36.0-66.0); Platelet Count 224 x10^3/uL (150-450); Red Blood Count 4.27 x10^6/uL (4.1-5.4); Red Cell Distribution Width 12.5 % (11.5-14.0); White Blood Count 5.2 x10^3/uL (4.0-10.5)
[2022-08-17 12:14] VITALS: BP 130/86; PULSE 78; O2SAT 96
== END 2022-08-17 12:21 | disposition home or self-care (01) ==
LOC: ED 10:47
DX: Z48.01 Encounter for change or removal of surgical wound dressing (principal); Z79.899 Other long term (current) drug therapy
CPT/HCPCS: 36415; 85025; 85652; 87070; 99283

== ENCOUNTER 2024-03-05 09:57 | Emergency (ER) | payer OTHER ==
--- NOTE | 2024-03-05 10:14 | ERPHSYRPT ---
- History of Present Illness Time Seen by Provider: 03/05/24 09:58 Historian: patient, family Exam Limitations: no limitations Physician History: This is a 64-year-old white female patient who arrives by private vehicle, driving herself to the emergency department secondary to having vomiting episodes today. In addition she states that she has had intermittent headaches for 3 weeks and associated abdominal pain. The patient's primary care provider is nurse glendy Nixon. Patient was seen at [facility] on 03/02/2024 and had lab work performed. I reviewed these outpatient lab. I interpreted the results as having no emergent issue. Patient denies chest pain. Patient denies shortness of breath. Patient has a history of gastroesophageal reflux disease, hypothyroidism, depression, panic attacks, and migraine headaches. Patient underwent a colonoscopy approximately within the last year and there was no significant findings per patient report. Timing/Duration: week(s) (3), worse Quality: aching Abdominal Pain Onset Location: generalized abdomen Severity of Pain-Max: moderate Severity of Pain-Current: mild Modifying Factors: Improves With: vomiting Associated Symptoms: headache, loss of appetite, nausea, vomiting, No chest pain, No diarrhea, No fever/chills Previous symptoms: no prior history, no recent treatment Allergies/Adverse Reactions: No Known Drug Allergies Allergy (Verified 03/05/24 10:16) Home Medications: Fluoxetine HCl 10 mg [Prozac 10 mg] 20 mg PO DAILY 03/05/24 [History] Ibuprofen 800 mg PO TID PRN 03/05/24 [History] Levothyroxine Sodium 100 Mcg [Synthroid 100 Mcg] 100 mcg PO DAILY 03/05/24 [History] Omeprazole 40 mg PO DAILY 03/05/24 [History] Propranolol HCl 80 mg PO DAILY 03/05/24 [History] Sumatriptan Succinate [Imitrex] 50 mg PO DAILY PRN 03/05/24 [History] Hx Tetanus, Diphtheria Vaccination/Date Given: No Hx Influenza Vaccination/Date Given: No Hx Pneumococcal Vaccination/Date Given: No Travel Risk - International Travel Have you traveled outside of the country in past 3 weeks: No - Emerging Infectious Disease Are you exhibiting symptoms associated with any current EIDs: Yes Symptoms: Abdominal Pain, Headaches/Body Aches/, Vomitting - Review of Systems Constitutional: No Symptoms Eyes: No Symptoms Ears, Nose, & Throat: No Symptoms Respiratory: No Symptoms Cardiac: No Symptoms Abdominal/Gastrointestinal: Abdominal Pain, Nausea, Vomiting, Appetite Changes Genitourinary Symptoms: No Symptoms Musculoskeletal: No Symptoms Skin: No Symptoms Neurological: Headache Psychological: No Symptoms Endocrine: No Symptoms Hematologic/Lymphatic: No Symptoms Immunological/Allergic: No Symptoms All Other Systems: Reviewed and Negative - Past Medical History Pertinent Past Medical History: Yes Neurological History: Migraines, Peripheral Neuropathy, Other ENT History: No Pertinent History Cardiac History: No Pertinent History Respiratory History: Sleep Apnea Endocrine Medical History: Thyroid Cancer Musculoskeletal History: Osteoarthritis GI Medical History: Hernia History: No Pertinent History Psycho-Social History: Anxiety, Depression Female Reproductive Disorders: No Pertinent History Other Medical History: MIGRAINE MEDICATION. TINGLING NOTED INTO B HANDS, HAS BEEN TO A NEUROLOGIST AND DIAGNOSED WITH CARPAL TUNNEL. PRE DIABETIC, THYROID CA, previous hx of smoking quiet 30 yrs ago. - Past Surgical History Past Surgical History: Yes Neuro Surgical History: No Pertinent History Cardiac: No Pertinent History Respiratory: No Pertinent History Gastrointestinal: Hernia Repair Genitourinary: No Pertinent History Musculoskeletal: No Pertinent History Female Surgical History: Tubal Ligation Other Surgical History: THYROID SURGERY, hernia, right bunionectomy - Social History Smoking Status: Former smoker Exposure to second hand smoke: No Drug Use: none Patient Lives Alone: No - Nursing Vital Signs Nursing Vital Signs: Initial Vital Signs Temperature 97.5 F 03/05/24 10:00 Pulse Rate 64 03/05/24 10:00 Respiratory Rate 18 03/05/24 10:00 Blood Pressure 155/76 03/05/24 10:00 O2 Sat by Pulse Oximetry 99 03/05/24 10:00 Pain Scale Pain Intensity 4 - Physical Exam General Appearance: no apparent distress, alert, anxiety Eye Exam: PERRL/EOMI, eyes nml inspection Ears, Nose, Throat Exam: normal ENT inspection, moist mucous membranes Neck Exam: normal inspection, non-tender, supple, full range of motion Respiratory Exam: normal breath sounds, lungs clear, airway intact, No chest tenderness, No respiratory distress Cardiovascular Exam: regular rate/rhythm, normal heart sounds, normal peripheral pulses Gastrointestinal/Abdomen Exam: soft, normal bowel sounds, tenderness (Generalized tenderness to palpation), guarding (Generalized location to palpation) Rectal Exam: not done Back Exam: normal inspection, normal range of motion, No CVA tenderness, No vertebral tenderness Extremity Exam: normal inspection, normal range of motion, pelvis stable Neurologic Exam: alert, oriented x 3, cooperative, lipstick molder II-XII nml as tested, nml cerebellar function, nml station & gait, sensation nml Skin Exam: normal color, warm, dry Lymphatic Exam: No adenopathy SpO2 Interpretation: normal O2 Delivery: Room Air - Course Nursing assessment & vital signs reviewed: Yes Ordered Tests: Active Orders 24 hr Category Date Time Status IV Insertion STAT Care 03/05/24 10:44 Active ABDOMEN AND PELVIS W/0 CONTRAS [CT] Stat Exams 03/05/24 10:45 Completed CHEST 1 VIEW (PORTABLE) Stat Exams 03/05/24 10:44 Completed HEAD WITHOUT CONTRAST [CT] Stat Exams 03/05/24 10:48 Completed AMYLASE Stat Lab 03/05/24 11:02 Completed CBC W DIFF Stat Lab 03/05/24 11:02 Completed CMP Stat Lab 03/05/24 11:02 Completed LIPASE Stat Lab 03/05/24 11:02 Completed MONO SCREEN Stat Lab 03/05/24 11:02 Completed TSH, 3RD Generation Stat Lab 03/05/24 11:02 Completed UA W/RFX UR CULTURE Stat Lab 03/05/24 10:44 Completed Medication Summary Discontinued Medications Generic Name Dose Route Start Last Admin Trade Name Artemioq PRN Reason Stop Dose Admin Acetaminophen 650 mg 03/05/24 12:57 03/05/24 13:00 Acetaminophen 325 Mg Tablet PO 03/05/24 12:58 650 mg STAT ONE Administration Acetaminophen Confirm 03/05/24 13:00 Acetaminophen 325 Mg Tablet Administered 03/05/24 13:01 Dose 650 mg .ROUTE .STK-MED ONE Sodium Chloride 1,000 mls @ 999 mls/hr 03/05/24 10:44 03/05/24 12:06 Sodium Chloride 0.9% 1000 Ml IV 03/05/24 11:44 Infused .Q1H1M STA Infusion Sodium Chloride Confirm 03/05/24 10:51 Sodium Chloride 0.9% 1000 Ml Administered 03/05/24 10:52 Dose 1,000 mls @ ud .ROUTE .STK-MED ONE Ondansetron HCl 4 mg 03/05/24 10:44 03/05/24 10:53 Ondansetron Hcl 4 Mg/2 Ml Vial IV 03/05/24 10:45 4 mg STAT ONE Administration Ondansetron HCl Confirm 03/05/24 10:51 Ondansetron Hcl 4 Mg/2 Ml Vial Administered 03/05/24 10:52 Dose 4 mg .ROUTE .[facility] ONE Pantoprazole Sodium 40 mg 03/05/24 10:44 03/05/24 10:54 Pantoprazole 40 Mg Vial IV 03/05/24 10:45 40 mg STAT ONE Administration Pantoprazole Sodium Confirm 03/05/24 10:51 Pantoprazole 40 Mg Vial Administered 03/05/24 10:52 Dose 40 mg IV .[facility] ONE Lab/Rad Data: Laboratory Result Diagrams 03/05/24 11:02 03/05/24 11:02 Laboratory Results 03/05/24 03/05/24 03/05/24 Range/Units 11:03 11:02 11:02 WBC (3.98-10.04) x10^3/uL RBC (3.93-5.22) x10^6/uL Hgb (11.2-15.7) g/dL Hct (34.1-44.9) % MCV (79.4-94.8) fL MCH (25.6-32.2) pg MCHC (32.2-35.5) g/dL RDW (11.7-14.4) % Plt Count (182-369) x10^3/uL MPV (9.4-12.3) fL Gran % (34.0-71.1) % Immature Gran % (Auto) (0.001-0.429) % Nucleat RBC Rel Count (0.00-0.2) % Eos # (Auto) (0.04-0.36) x10^3/uL Immature Gran # (Auto) (0.001-0.031) x10^3u/L Absolute Lymphs (auto) (1.18-3.74) x10^3/uL Absolute Monos (auto) (0.24-0.86) x10^3/uL Absolute Nucleated RBC (0.00-0.012) x10^3u/L Lymphocytes % (19.3-51.7) % Monocytes % (4.7-12.5) % Eosinophils % (0.7-5.8) % Basophils % (0.1-1.2) % Absolute Granulocytes (1.56-6.13) x10^3/uL Basophils # (0.01-0.08) x10^3/uL Sodium (135-145) mmol/L Potassium (3.5-5.1) mmol/L Chloride (98-107) mmol/L Carbon Dioxide (22-30) mmol/L Anion Gap (5-15) MEQ/L BUN (7-17) mg/dL Creatinine (0.52-1.04) mg/dL Estimated GFR ML/MIN Glucose (74-106) mg/dL Calcium (8.4-10.2) mg/dL Total Bilirubin (0.2-1.3) mg/dL AST (14-36) U/L ALT (0-35) U/L Alkaline Phosphatase (38-126) U/L Serum Total Protein (6.3-8.2) g/dL Albumin (3.5-5.0) g/dL Amylase (30-110) U/L Lipase (23-300) U/L Free T4 2.23 H (0.78-2.19) ng/dL TSH 3rd Generation (0.470-4.680) mIU/L Urine Color (Yellow) Urine Appearance (Clear) Urine pH (4.6-8.0) Ur Specific [place] (1.005-1.030) Urine Protein (Negative) Urine Glucose (UA) (Negative) mg/dL Urine Ketones (Negative) Urine Blood (Negative) Urine Nitrite (Negative) Urine Bilirubin (Negative) Urine Urobilinogen (0.2) mg/dL Ur Leukocyte Esterase (Negative) U Hyaline Cast (Auto) (0-2) /LPF Urine Microscopic RBC (0-5) /HPF Urine Microscopic WBC (0-5) /HPF Ur Epithelial Cells (None Seen) /HPF Urine Bacteria (None Seen) /HPF Urine Culture Reflexed (NO) Monoscreen NEGATIVE (NEGATIVE) Influenza Type A Ag NEGATIVE (NEGATIVE) Influenza Type B Ag NEGATIVE (NEGATIVE) RSV (PCR) NEGATIVE (NEGATIVE) SARS-CoV-2 (PCR) NEGATIVE (NEGATIVE) 03/05/24 03/05/24 03/05/24 Range/Units 11:02 11:02 10:44 WBC 6.0 (3.98-10.04) x10^3/uL RBC 4.47 (3.93-5.22) x10^6/uL Hgb 12.4 (11.2-15.7) g/dL Hct 37.5 (34.1-44.9) % MCV 83.9 (79.4-94.8) fL MCH 27.7 (25.6-32.2) pg MCHC 33.1 (32.2-35.5) g/dL RDW 12.9 (11.7-14.4) % Plt Count 232 (182-369) x10^3/uL MPV 10.6 (9.4-12.3) fL Gran % 74.7 H (34.0-71.1) % Immature Gran % (Auto) 0.3 (0.001-0.429) % Nucleat RBC Rel Count 0.0 (0.00-0.2) % Eos # (Auto) 0.09 (0.04-0.36) x10^3/uL Immature Gran # (Auto) 0.02 (0.001-0.031) x10^3u/L Absolute Lymphs (auto) 0.98 L (1.18-3.74) x10^3/uL Absolute Monos (auto) 0.39 (0.24-0.86) x10^3/uL Absolute Nucleated RBC 0.00 (0.00-0.012) x10^3u/L Lymphocytes % 16.2 L (19.3-51.7) % Monocytes % 6.5 (4.7-12.5) % Eosinophils % 1.5 (0.7-5.8) % Basophils % 0.8 (0.1-1.2) % Absolute Granulocytes 4.51 (1.56-6.13) x10^3/uL Basophils # 0.05 (0.01-0.08) x10^3/uL Sodium 139 (135-145) mmol/L Potassium 4.0 (3.5-5.1) mmol/L Chloride 103 (98-107) mmol/L Carbon Dioxide 27 (22-30) mmol/L Anion Gap 12.4 (5-15) MEQ/L BUN 10 (7-17) mg/dL Creatinine 0.73 (0.52-1.04) mg/dL Estimated GFR 91.8 ML/MIN Glucose 105 (74-106) mg/dL Calcium 9.5 (8.4-10.2) mg/dL Total Bilirubin 0.70 (0.2-1.3) mg/dL AST 60 H (14-36) U/L ALT 27 (0-35) U/L Alkaline Phosphatase 83 (38-126) U/L Serum Total Protein 7.5 (6.3-8.2) g/dL Albumin 4.5 (3.5-5.0) g/dL Amylase 49 (30-110) U/L Lipase 60 (23-300) U/L Free T4 (0.78-2.19) ng/dL TSH 3rd Generation 0.387 L (0.470-4.680) mIU/L Urine Color Yellow (Yellow) Urine Appearance Clear (Clear) Urine pH 5.5 (4.6-8.0) Ur Specific [place] 1.015 (1.005-1.030) Urine Protein Negative (Negative) Urine Glucose (UA) Negative (Negative) mg/dL Urine Ketones Negative (Negative) Urine Blood Negative (Negative) Urine Nitrite Negative (Negative) Urine Bilirubin Negative (Negative) Urine Urobilinogen 0.2 (0.2) mg/dL Ur Leukocyte Esterase Negative (Negative) U Hyaline Cast (Auto) NONE SEEN (0-2) /LPF Urine Microscopic RBC 0-2 (0-5) /HPF Urine Microscopic WBC 0-2 (0-5) /HPF Ur Epithelial Cells Rare (None Seen) /HPF Urine Bacteria None Seen (None Seen) /HPF Urine Culture Reflexed NO (NO) Monoscreen (NEGATIVE) Influenza Type A Ag (NEGATIVE) Influenza Type B Ag (NEGATIVE) RSV (PCR) (NEGATIVE) SARS-CoV-2 (PCR) (NEGATIVE) - Progress Progress Note: 03/05/24 11:30 My medical decision making and the assignment of moderate complexity to this patient's medical issue today is based on review of the patient's past medical history, review the patient's medication list, reviewed patient drug allergy list, history present illness and physical findings on examination. The workup in this patient includes placement of a intravenous line, infusion of normal saline solution, CBC, CMP, amylase, lipase, urinalysis, viral swabs, monotest, thyroid function test, CT scan of the head and CT scan of the abdomen pelvis both without contrast. Differential diagnosis includes but is not limited to anxiety about health, acute intracranial abnormality, acute intra-abdominal and pelvic abnormality, urinary tract infection, viral illness, thyroid function test abnormality 03/05/24 13:13 Interpreted the patient's laboratory data results. Based on the laboratory data results, the patient has a mild hyperthyroidism picture. No other acute, emergent medical issue. The following radiographic studies were interpreted by the radiologist and I reviewed the impression: CT scan of the head without contrast is a normal CT scan of the head exam without contrast. CT scan of the abdomen pelvis without contrast shows chronic findings. No new or acute findings in this noncontrast exam. Chest x-ray has nonacute findings. There are chronic findings present. Counseled pt/family regarding: lab results, diagnosis, need for follow-up, rad results Medical Desision Making - Diagnostic Testing Diagnostic test were ordered, analyzed, and reviewed by me: Yes Radiological Interpretation: Reviewed by me, Teleradiologist Report - Risk of complications Low Risk: Low risk of morbidity from additional dx testing or treatment - Departure Departure Disposition: Home Clinical Impression: Headache, Vomiting, Abdominal pain, Hyperthyroidism Condition: Stable Critical Care Time: No Referrals: SHEILA NIXON NP [Primary Care Provider] - Follow up/PCP as directed Additional Instructions: Drink plenty of clear liquids. Avoid fatty greasy spicy foods. Call your p rescribing provider today, 03/05/2024, to make arrangements for follow-up appointment for further evaluation and management and to discuss your thyroid medication dosing. Prescriptions: Ondansetron ODT 4 MG [Zofran Odt 4 mg] 4 mg PO Q6H PRN PRN #10 tablet PRN Reason: Vomiting
[2024-03-05 10:39] VITALS: RESP 18; TEMP 97.5
[2024-03-05] MEDS ORDERED: PROTONIX 40 MG IV IV ONE (10:51)
[2024-03-05] MEDS ORDERED: Zofran 4 MG/2 ML VIAL ONE (10:51)
[2024-03-05] MEDS ORDERED: Sodium Chloride 0.9% 1000 ML 1,000 ML ONE (10:51)
[2024-03-05] MEDS: Sodium Chloride 0.9% 1000 ML 1,000 ML IV STA (10:52)
[2024-03-05] MEDS: Zofran 4 MG/2 ML VIAL IV ONE (10:53)
[2024-03-05] MEDS: PROTONIX 40 MG IV IV ONE (10:54)
[2024-03-05 11:02] LABS: Absolute Neutrophil Ct (ANC) 4.51 x10^3/uL (1.56-6.13); BASOPHIL % 0.8 % (0.1-1.2); Basophil (Absolute #) 0.05 x10^3/uL (0.01-0.08); Eosinophil % 1.5 % (0.7-5.8); Eosinophil (Absolute #) 0.09 x10^3/uL (0.04-0.36); Hematocrit 37.5 % (34.1-44.9); Hemoglobin 12.4 g/dL (11.2-15.7); IMMATURE GRAN # 0.02 x10^3u/L (0.001-0.031); IMMATURE GRAN % 0.3 % (0.001-0.429); Lymphocyte (Absolute #) 0.98 x10^3/uL (1.18-3.74); Lymphocytes % 16.2 % (19.3-51.7); Mean Cell Volume 83.9 fL (79.4-94.8); Mean Corpuscular Hemoglobin 27.7 pg (25.6-32.2); Mean Corpuscular Hgb Concent. 33.1 g/dL (32.2-35.5); Mean Platelet Volume 10.6 fL (9.4-12.3); Monocyte (Absolute #) 0.39 x10^3/uL (0.24-0.86); Monocytes % 6.5 % (4.7-12.5); Neutrophil % 74.7 % (34.0-71.1); Platelet Count 232 x10^3/uL (182-369); Red Blood Count 4.47 x10^6/uL (3.93-5.22); Red Cell Distribution Width 12.9 % (11.7-14.4)
[2024-03-05 11:41] LABS: INFLUENZA A NEGATIVE (NEGATIVE); INFLUENZA B NEGATIVE (NEGATIVE); RESPIRATORY SYNCTIAL VIRUS NEGATIVE (NEGATIVE); SARS-CoV-2 Xpert Express NEGATIVE (NEGATIVE)
[2024-03-05 11:47] LABS: ALBUMIN 4.5 g/dL (3.5-5.0); ANION GAP 12.4 MEQ/L (5-15); BILIRUBIN,TOTAL 0.7 mg/dL (0.2-1.3); Calcium 9.5 mg/dL (8.4-10.2); Creatinine 1 0.73 mg/dL (0.52-1.04); EST GLOMERULAR FILTRATION RATE 91.8 ML/MIN; TSH, 3RD Generation 0.387 mIU/L (0.470-4.680); Total Protein 7.5 g/dL (6.3-8.2)
[2024-03-05 12:00] LABS: Bacteria None Seen /HPF (None Seen); Epithelial Cells Rare /HPF (None Seen); Hyaline Casts NONE SEEN /LPF (0-2); RBC 0-2 /HPF (0-5); WBC 0-2 /HPF (0-5)
[2024-03-05 12:01] LABS: Appearance Clear (Clear); Bilirubin Negative (Negative); Blood Negative (Negative); Glucose, Urine Negative (Negative); Ketones Negative (Negative); Leukocyte Esterase Negative (Negative); Nitrite Negative (Negative); Ph 5.5 (4.6-8.0); Protein,Urine Dip Negative (Negative); Specific Gravity 1.015 (1.005-1.030); Urobilinogen 0.2 mg/dL (0.2)
[2024-03-05 12:51] VITALS: BP 146/73; PULSE 64; O2SAT 98
[2024-03-05] MEDS: TYLENOL 325 MG PO ONE (13:00)
[2024-03-05] MEDS ORDERED: TYLENOL 325 MG ONE (13:00)
--- NOTE | 2024-03-05 13:00 | XRAY ---
Indication: Headache. Status post fall. Multiple contiguous axial images obtained through the head without contrast. Comparison: None Normal appearing brain parenchyma, ventricles, and bony calvarium for patient's age. Visualized paranasal sinuses and mastoid air cells are clear. Impression: Normal CT head without contrast exam.
--- NOTE | 2024-03-05 13:03 | XRAY ---
Indication: Abdominal pain and vomiting. Multiple contiguous axial images obtained through the abdomen and pelvis without contrast. Comparison: November 03, 2017 Lung bases again demonstrates minimal bibasilar subsegmental atelectasis/scarring. No infiltrate or effusion. Heart not enlarged. Noncontrasted stomach and bowel loops appear nonobstructed with normal appendix. Stable right renal cyst and tiny calcified splenic granulomas. No free fluid/air. Remaining liver, gallbladder, pancreas, spleen, adrenal glands, kidneys, ureters, bladder, and uterus are unremarkable for noncontrast exam. New minimal aortoiliac ossification is without AAA. Osseous structures intact again with mild/moderate degenerative changes throughout thoracolumbar spine and partially visualized pectus excavatum deformity. Impression: Chronic findings including right renal cyst, arteriosclerotic disease, chronic bony findings, and old granulomatous disease. Again no acute findings on this noncontrast exam.
--- NOTE | 2024-03-05 13:05 | XRAY ---
Indication: Pain following fall. Comparison: December 01, 2019 Portable chest again demonstrates a few tiny calcified granulomas. No focal infiltrate, consolidation, or large effusion. Heart not enlarged for AP portable technique. Bony thorax intact again with osteopenia, mild degenerative changes, and minimal levoscoliosis. Impression: Continued nonacute chest with chronic features.
== END 2024-03-05 13:31 | disposition home or self-care (01) ==
LOC: ED 09:57
DX: R51.9 Headache, unspecified (principal); R11.2 Nausea with vomiting, unspecified; R10.9 Unspecified abdominal pain; E05.90 Thyrotoxicosis, unspecified without thyrotoxic crisis or storm; Z79.899 Other long term (current) drug therapy
CPT/HCPCS: 0241U; 36415; 70450; 71045; 74176; 80053; 81001; 82150; 83690; 84439; 84443; 85025; 86308; 96374; 96375; 99285; 99284; J2405; A9270-GY

== ENCOUNTER 2024-11-28 07:44 | Emergency (ER) | payer OTHER ==
--- NOTE | 2024-11-28 07:53 | ERPHSYRPT ---
- History of Present Illness Time Seen by Provider: 11/28/24 07:53 Historian: patient Exam Limitations: no limitations Physician History: Patient presents to the emergency room with 1 month history of diarrhea. She has been on multiple antibiotics without improvement. She reports negative C. difficile testing last week with her primary care provider. Patient has anxiety about her health and is emotional on evaluation. She does report some upper epigastric discomfort. She has had what sounds like a hiatal hernia repair in the past. No recent EGD. She did report normal colonoscopy 1 to 2 years ago. No blood in her stool. No bloody emesis. Denies chest pain or shortness of breath. No fevers. Timing/Duration: week(s) (4) Activities at Onset: none Quality: sharpness Abdominal Pain Onset Location: epigastric Pain Radiation: no radiation Severity of Pain-Max: moderate Severity of Pain-Current: moderate Modifying Factors: Worsens With: eating, palpation Associated Symptoms: diarrhea, fatigue, heartburn, loss of appetite, nausea, weakness, No fever/chills, No vomiting Previous symptoms: same symptoms as today Allergies/Adverse Reactions: No Known Drug Allergies Allergy (Verified 11/28/24 08:01) Home Medications: Fluoxetine HCl 10 mg [Prozac 10 mg] 40 mg PO DAILY 03/05/24 [History] Ibuprofen 800 mg PO TID PRN 03/05/24 [History] Levothyroxine Sodium 100 Mcg [Synthroid 100 Mcg] 100 mcg PO DAILY 03/05/24 [History] Omeprazole 40 mg PO DAILY 03/05/24 [History] Propranolol HCl 80 mg PO DAILY 03/05/24 [History] Sumatriptan Succinate [Imitrex] 50 mg PO DAILY PRN 03/05/24 [History] Hx Tetanus, Diphtheria Vaccination/Date Given: No Hx Influenza Vaccination/Date Given: No Hx Pneumococcal Vaccination/Date Given: No Travel Risk - Emerging Infectious Disease Are you exhibiting symptoms associated with any current EIDs: Yes Symptoms: Abdominal Pain, Headaches/Body Aches/, Vomitting Comment: headache without body aches - Review of Systems All Other Systems: Reviewed and Negative - Past Medical History Pertinent Past Medical History: Yes Neurological History: Migraines, Peripheral Neuropathy, Other ENT History: No Pertinent History Cardiac History: No Pertinent History Respiratory History: Sleep Apnea Endocrine Medical History: Thyroid Cancer Musculoskeletal History: Osteoarthritis GI Medical History: Hernia History: No Pertinent History Psycho-Social History: Anxiety, Depression Female Reproductive Disorders: No Pertinent History Other Medical History: MIGRAINE MEDICATION. TINGLING NOTED INTO B HANDS, HAS BEEN TO A NEUROLOGIST AND DIAGNOSED WITH CARPAL TUNNEL. PRE DIABETIC, THYROID CA, previous hx of smoking quiet 30 yrs ago. - Past Surgical History Past Surgical History: Yes Neuro Surgical History: No Pertinent History Cardiac: No Pertinent History Respiratory: No Pertinent History Gastrointestinal: Hernia Repair Genitourinary: No Pertinent History Musculoskeletal: No Pertinent History Female Surgical History: Tubal Ligation Other Surgical History: THYROID SURGERY, hernia, right bunionectomy - Social History Smoking Status: Former smoker Exposure to second hand smoke: No Drug Use: none Patient Lives Alone: No - Social Determinants of Health Will the patient participate in the screening: Yes Do you worry about a steady place to live?: No In the past 12 months,have you had to go without utilities?: No Transportation Issues: No Has anyone in your support network made you feel unsafe?: No Have you or anyone in your house had to go w/o enough food: No - Nursing Vital Signs Nursing Vital Signs: Initial Vital Signs Blood Pressure 153/75 11/28/24 08:01 Pain Scale Pain Intensity 0 - Physical Exam General Appearance: no apparent distress Eye Exam: eyes nml inspection Neck Exam: normal inspection, supple, full range of motion Respiratory Exam: normal breath sounds, lungs clear, airway intact, No respiratory distress Cardiovascular Exam: regular rate/rhythm, normal heart sounds, capillary refill <2 sec, No edema Gastrointestinal/Abdomen Exam: soft, normal bowel sounds, tenderness (epigastric), No distention, No guarding, No rebound Neurologic Exam: alert, oriented x 3, other (anxious, tearful) Skin Exam: dry, pale, No rash SpO2 Interpretation: normal O2 Delivery: Room Air - Course Nursing assessment & vital signs reviewed: Yes EKG Interpreted by Me: RATE (68), Sinus Rhythm, NORMAL AXIS, NORMAL INTERVALS, NORMAL QRS, NORMAL ST-T Ordered Tests: Active Orders 24 hr Category Date Time Status IV Insertion STAT Care 11/28/24 07:54 Active ABDOMEN AND PELVIS W/0 CONTRAS [CT] Stat Exams 11/28/24 08:34 Completed CHEST 1 VIEW (PORTABLE) Stat Exams 11/28/24 08:53 Taken CBC W DIFF Stat Lab 11/28/24 08:00 Completed CMP Stat Lab 11/28/24 08:00 Completed CULTURE,SPUTUM Stat Lab 11/28/24 Ordered CULTURE,URINE Stat Lab 11/28/24 08:10 Received LIPASE Stat Lab 11/28/24 08:00 Completed Lactic Acid Stat Lab 11/28/24 08:10 Completed OB-FECAL SCREEN Stat Lab 11/28/24 Ordered UA W/RFX UR CULTURE Stat Lab 11/28/24 08:10 Completed Medication Summary Discontinued Medications Generic Name Dose Route Start Last Admin Trade Name Freq PRN Reason Stop Dose Admin Bismuth Subsalicylate 1,050 mg 11/28/24 08:03 11/28/24 08:40 Bismuth Subsalicylate 262 Mg/15 Ml Bottle PO 11/28/24 08:04 1,050 mg STAT ONE Administration Sodium Chloride 1,000 mls @ 999 mls/hr 11/28/24 07:54 11/28/24 08:42 Sodium Chloride 0.9% 1000 Ml IV 11/28/24 08:54 999 mls/hr .Q1H1M STA Administration Sodium Chloride Confirm 11/28/24 08:17 Sodium Chloride 0.9% 1000 Ml Administered 11/28/24 08:18 Dose 1,000 mls @ ud .ROUTE .STK-MED ONE Lactobacillus Acidophilus 1 tab 11/28/24 10:00 11/28/24 08:41 Lactobacillus Acidophilus 1 Tab Tablet PO 11/28/24 10:01 1 tab STAT ONE Administration Lorazepam 1 mg 11/28/24 08:18 11/28/24 08:42 Lorazepam 2 Mg/1 Ml 2 Mg Vial IV 11/28/24 08:19 1 mg STAT ONE Administration Lorazepam Confirm 11/28/24 08:37 Lorazepam 20 Mg/10 Ml Mdv 2 Mg/Ml For Single Doses Administered 11/28/24 08:38 Dose 20 mg .ROUTE .STK-MED ONE Prochlorperazine Edisylate 10 mg 11/28/24 08:33 11/28/24 08:41 Prochlorperazine Edisylate 10 Mg/2 Ml Vial IV 11/28/24 08:34 10 mg STAT ONE Administration Prochlorperazine Edisylate Confirm 11/28/24 08:37 Prochlorperazine Edisylate 10 Mg/2 Ml Vial Administered 11/28/24 08:38 Dose 10 mg .ROUTE .STK-MED ONE Lab/Rad Data: Laboratory Result Diagrams 11/28/24 08:00 11/28/24 08:00 Laboratory Results 11/28/24 11/28/24 11/28/24 Range/Units 08:10 08:10 08:00 WBC (3.98-10.04) x10^3/uL RBC (3.93-5.22) x10^6/uL Hgb (11.2-15.7) g/dL Hct (34.1-44.9) % MCV (79.4-94.8) fL MCH (25.6-32.2) pg MCHC (32.2-35.5) g/dL RDW (11.7-14.4) % Plt Count (182-369) x10^3/uL MPV (9.4-12.3) fL Gran % (34.0-71.1) % Immature Gran % (Auto) (0.001-0.429) % Nucleat RBC Rel Count (0.00-0.2) % Eos # (Auto) (0.04-0.36) x10^3/uL Immature Gran # (Auto) (0.001-0.031) x10^3u/L Absolute Lymphs (auto) (1.18-3.74) x10^3/uL Absolute Monos (auto) (0.24-0.86) x10^3/uL Absolute Nucleated RBC (0.00-0.012) x10^3u/L Lymphocytes % (19.3-51.7) % Monocytes % (4.7-12.5) % Eosinophils % (0.7-5.8) % Basophils % (0.1-1.2) % Absolute Granulocytes (1.56-6.13) x10^3/uL Basophils # (0.01-0.08) x10^3/uL Sodium 134 L (135-145) mmol/L Potassium 4.0 (3.5-5.1) mmol/L Chloride 102 (98-107) mmol/L Carbon Dioxide 24 (22-30) mmol/L Anion Gap 11.8 (5-15) MEQ/L BUN 6 L (7-17) mg/dL Creatinine 0.69 (0.52-1.04) mg/dL Estimated GFR 96.9 ML/MIN Glucose 120 H (74-106) mg/dL Lactic Acid 1.0 (0.4-2.0) Calcium 8.9 (8.4-10.2) mg/dL Total Bilirubin 1.00 (0.2-1.3) mg/dL AST 52 H (14-36) U/L ALT 41 H (0-35) U/L Alkaline Phosphatase 49 (38-126) U/L Serum Total Protein 7.8 (6.3-8.2) g/dL Albumin 4.9 (3.5-5.0) g/dL Lipase 55 (23-300) U/L Urine Color Yellow (Yellow) Urine Appearance Cloudy A (Clear) Urine pH 7.0 (4.6-8.0) Ur Specific Garber 1.010 (1.005-1.030) Urine Protein Negative (Negative) Urine Glucose (UA) Negative (Negative) mg/dL Urine Ketones 15 A (Negative) Urine Blood Trace (Negative) Urine Nitrite Negative (Negative) Urine Bilirubin Negative (Negative) Urine Urobilinogen 0.2 (0.2) mg/dL Ur Leukocyte Esterase Trace A (Negative) U Hyaline Cast (Auto) NONE SEEN (0-2) /LPF Urine Microscopic RBC 3-5 (0-5) /HPF Urine Microscopic WBC 0-2 (0-5) /HPF Ur Epithelial Cells Moderate A (None Seen) /HPF Urine Bacteria Few A (None Seen) /HPF Urine Culture Reflexed YES (NO) 11/28/24 Range/Units 08:00 WBC 5.8 (3.98-10.04) x10^3/uL RBC 4.37 (3.93-5.22) x10^6/uL Hgb 12.5 (11.2-15.7) g/dL Hct 38.5 (34.1-44.9) % MCV 88.1 (79.4-94.8) fL MCH 28.6 (25.6-32.2) pg MCHC 32.5 (32.2-35.5) g/dL RDW 12.8 (11.7-14.4) % Plt Count 249 (182-369) x10^3/uL MPV 10.0 (9.4-12.3) fL Gran % 72.8 H (34.0-71.1) % Immature Gran % (Auto) 0.2 (0.001-0.429) % Nucleat RBC Rel Count 0.3 H (0.00-0.2) % Eos # (Auto) 0.07 (0.04-0.36) x10^3/uL Immature Gran # (Auto) 0.01 (0.001-0.031) x10^3u/L Absolute Lymphs (auto) 1.11 L (1.18-3.74) x10^3/uL Absolute Monos (auto) 0.35 (0.24-0.86) x10^3/uL Absolute Nucleated RBC 0.02 H (0.00-0.012) x10^3u/L Lymphocytes % 19.1 L (19.3-51.7) % Monocytes % 6.0 (4.7-12.5) % Eosinophils % 1.2 (0.7-5.8) % Basophils % 0.7 (0.1-1.2) % Absolute Granulocytes 4.22 (1.56-6.13) x10^3/uL Basophils # 0.04 (0.01-0.08) x10^3/uL Sodium (135-145) mmol/L Potassium (3.5-5.1) mmol/L Chloride (98-107) mmol/L Carbon Dioxide (22-30) mmol/L Anion Gap (5-15) MEQ/L BUN (7-17) mg/dL Creatinine (0.52-1.04) mg/dL Estimated GFR ML/MIN Glucose (74-106) mg/dL Lactic Acid (0.4-2.0) Calcium (8.4-10.2) mg/dL Total Bilirubin (0.2-1.3) mg/dL AST (14-36) U/L ALT (0-35) U/L Alkaline Phosphatase (38-126) U/L Serum Total Protein (6.3-8.2) g/dL Albumin (3.5-5.0) g/dL Lipase (23-300) U/L Urine Color (Yellow) Urine Appearance (Clear) Urine pH (4.6-8.0) Ur Specific Garber (1.005-1.030) Urine Protein (Negative) Urine Glucose (UA) (Negative) mg/dL Urine Ketones (Negative) Urine Blood (Negative) Urine Nitrite (Negative) Urine Bilirubin (Negative) Urine Urobilinogen (0.2) mg/dL Ur Leukocyte Esterase (Negative) U Hyaline Cast (Auto) (0-2) /LPF Urine Microscopic RBC (0-5) /HPF Urine Microscopic WBC (0-5) /HPF Ur Epithelial Cells (None Seen) /HPF Urine Bacteria (None Seen) /HPF Urine Culture Reflexed (NO) - Progress Progress: improved Progress Note: This patient presents with month long hx of diarrhea. Doubt acute bacterial diarrhea. Considered, but think unlikely, partial SBO, appendicitis, diverticulitis, other intraabdominal infection. Low suspicion for secondary causes of diarrhea such as hyperadrenergic state, pheo, adrenal crisis, hyperthyroidism, or sepsis. Possible antibiotic associated diarrhea. Reports recent neg c diff. Plan: labs, CT a/p, CXR, stool studies, UA, legionella, c diff, IVF 11/28/24 10:44 labs show mild elevation in AST and ALT otherwise unremarkable. CT a/p neg for acute finding. CXR shows no focal consolidation. stool studies - patient unable to give sample today legionella pending. DC home with zofran, advise follow up with GI for EGD and colonoscopy. Counseled pt/family regarding: lab results, diagnosis, need for follow-up, rad results Medical Desision Making - Diagnostic Testing Diagnostic test were ordered, analyzed, and reviewed by me: Yes Radiological Interpretation: Interpreted by me, Reviewed by me, Teleradiologist Report - Risk of complications The pt has a mod risk of morbidity or mortality based on: Need for prescription drug management - Departure Departure Disposition: Home Clinical Impression: Diarrhea, Abdominal pain, Anxiety about health, Transaminitis, Nausea Condition: Stable Critical Care Time: No Referrals: JAGJIT WHITE NP [Primary Care Provider, [facility]] - Follow up/PCP as directed Instructions: Diarrhea in teens and adults Prescriptions: Ondansetron ODT 4 MG [Zofran Odt 4 mg] 4 mg PO Q6HPRN PRN #30 tab PRN Reason: Nausea
[2024-11-28 08:02] VITALS: TEMP 97.2
[2024-11-28 08:11] LABS: BASOPHIL % 0.7 % (0.1-1.2); Basophil (Absolute #) 0.04 x10^3/uL (0.01-0.08); Eosinophil (Absolute #) 0.07 x10^3/uL (0.04-0.36); Hematocrit 38.5 % (34.1-44.9); Hemoglobin 12.5 g/dL (11.2-15.7); IMMATURE GRAN # 0.01 x10^3u/L (0.001-0.031); IMMATURE GRAN % 0.2 % (0.001-0.429); Lymphocyte (Absolute #) 1.11 x10^3/uL (1.18-3.74); Mean Corpuscular Hemoglobin 28.6 pg (25.6-32.2); Mean Corpuscular Hgb Concent. 32.5 g/dL (32.2-35.5); Monocyte (Absolute #) 0.35 x10^3/uL (0.24-0.86); NUCLEATED RBC # 0.02 x10^3u/L (0.00-0.012); NUCLEATED RBC % 0.3 % (0.00-0.2); Platelet Count 249 x10^3/uL (182-369); Red Blood Count 4.37 x10^6/uL (3.93-5.22); White Blood Count 5.8 x10^3/uL (3.98-10.04)
[2024-11-28 08:18] LABS: Glucose, Urine Negative (Negative); Protein,Urine Dip Negative (Negative); WBC 0-2 /HPF (0-5)
[2024-11-28 08:25] LABS: Calcium 8.9 mg/dL (8.4-10.2); Carbon Dioxide 24.0 mmol/L (22-30); Creatinine 1 0.69 mg/dL (0.52-1.04); EST GLOMERULAR FILTRATION RATE 96.9 ML/MIN; Glucose 120.0 mg/dL (74-106); Potassium 4.0 mmol/L (3.5-5.1); SGOT/AST 52.0 U/L (14-36); SGPT/ALT 41.0 U/L (0-35); Total Protein 7.8 g/dL (6.3-8.2)
[2024-11-28] MEDS ORDERED: ATIVAN 2 MG/ML MDV FOR SINGLE DOSES ONE (08:37)
[2024-11-28] MEDS ORDERED: Compazine 10 MG/2 ML ONE (08:37)
[2024-11-28] MEDS: Pepto-Bismol PO ONE (08:40)
[2024-11-28] MEDS: Compazine 10 MG/2 ML IV ONE (08:41)
[2024-11-28] MEDS: Acidophilus TABLET PO ONE (08:41)
[2024-11-28] MEDS: Ativan 2 MG/1 ML VIAL IV ONE (08:42)
--- NOTE | 2024-11-28 09:04 | XRAY ---
CLINICAL HISTORY: abd pain COMPARISON: CT dated 03/05/2024. TECHNIQUE: Non-contrast CT of the abdomen and pelvis was performed with the following protocol: axial images and reconstructed coronal and sagittal images. No intravenous contrast was administered. One of the following dose reduction techniques was utilized for this exam: automated exposure control, adjustment of the mA and/or kV according to patient size, and use of iterative reconstruction. FINDINGS: Abdomen: Liver: The liver is normal in size, shape, and density. No focal lesions, cysts, or masses are identified. Gallbladder and Biliary System: The gallbladder is normal in size and shape. No wall thickening, pericholecystic fluid, or gallstones are identified. Pancreas: The pancreatic head, body, and tail are visualized and appear normal in size and density. No pancreatic masses or calcifications are noted. Spleen: The spleen is unchanged, with a few discrete calcifications, which are nonspecific. No splenic lesions or masses are identified. Kidneys and Adrenal Glands: Both kidneys are normal in size, shape, and position. Cortical thickness is within normal limits. No renal calculi or hydronephrosis are present. There is an unchanged 3.5 cm simple renal cyst in the right kidney middle lobe. The adrenal glands are unremarkable. Appendix: The appendix is normal in size without periappendiceal fat stranding and without an appendicolith. There is no evidence of appendiceal abscess or perforation. Pelvis: Urinary Bladder: The urinary bladder is normal in contour and wall thickness. No intraluminal lesions are seen. Uterus: The uterus is normal in size and contour. No masses or abnormal thickening are identified. Ovaries: The ovaries are not well visualized, but no gross abnormalities are noted. Vagina: The vagina is normal in contour and wall thickness. Cervix: There is no evidence of mass or abnormal thickening. Peritoneal and Retroperitoneal Structures: Unchanged mesh noted deep to the linea alba. No free fluid or abnormal fluid collections are identified within the abdomen or pelvis. No lymphadenopathy is noted. Bowel: Unchanged uncomplicated sigmoid diverticulosis. The visualized bowel loops are normal in caliber and appearance. There is no evidence of bowel obstruction or wall thickening. Bones and Soft Tissues: Unchanged pectus excavatum. Unchanged moderate cardiomegaly. The pelvic bones and soft tissues are unremarkable. No fractures or abnormal masses are identified. IMPRESSION: 1. No gross interval changes compared with 03/05/2024. 2. Unchanged uncomplicated sigmoid diverticulosis. 3. Unchanged pectus excavatum. 4. Unchanged mesh noted deep to the linea alba. Electronically Signed by: Oscar Marcum MD. (11/28/2024 09:03:30 EDT)
[2024-11-28 11:15] VITALS: BP 135/81; PULSE 70; RESP 16; O2SAT 97
--- NOTE | 2024-11-28 22:47 | XRAY ---
Indication: Cough. Comparison: August 03, 2024 Portable chest unchanged again demonstrating a few tiny calcified granulomas and left midlung subsegmental atelectasis/scarring. Heart not enlarged. Bony thorax intact again with osteopenia, degenerative changes, and old right clavicle fracture. No new/acute findings.
== END 2024-11-28 11:20 | disposition home or self-care (01) ==
LOC: ED 07:44
DX: R19.7 Diarrhea, unspecified (principal); R10.13 Epigastric pain; F45.9 Somatoform disorder, unspecified; R74.01 Elevation of levels of liver transaminase levels; R11.0 Nausea; Z79.899 Other long term (current) drug therapy